=== PATIENT | female | born 1960 | race Caucasian/White ===

== ENCOUNTER → 2016-12-08 13:35 | Outpatient (CLI) | payer MEDICAID ==
[2015-11-20 06:25] VITALS: BMI 27.5
[~2016-12-08 13:35] MED LIST: AMBIEN5 MG PO; ATIVAN0.5 MG PO; GABAPENTIN100 MG PO; HYDROCODONE-APA1 TAB PO; TENORETIC 50 TA1 TAB PO; ZANAFLEX2 M1 PO
== END | disposition home or self-care (01) ==
LOC: D.MRI 13:35 → D.CT 15:30
DX: M54.2 Cervicalgia (principal); R06.00 Dyspnea, unspecified

== ENCOUNTER 2017-04-08 07:31 | Outpatient (CLI) | payer MEDICAID ==
[~2017-04-08] VITALS: Ht 157.5 cm; Wt 68.2 kg
--- NOTE | ~2017-04-08 | HEMODYNAMI ---
PATIENT:ARTEMIO CONCEPCION MEDICAL RECORD: [id number] : 58 LOCATION:DPETROS ADMISSION DATE: 04/08/17 Generatedon:04/08/201710:45 Patient name: ARTEMIO CONCEPCION Patient #: [id number] SSN: : 1960 Date of study: 04/08/2017 Page: Of Hemodynamic Procedure Report Patient Data Patient Demographics Procedure consent was obtained First Name: ARTEMIO Gender: Female Last Name: JAMEY : 1960 [facility] Initial: BETH Age: 57 year(s) Patient #: [id number] Race: Additional ID: [id number] Contact details Address: [address] [place] [address] State: [place] City: [facility] Zip code: [address] Past Medical History Performed procedures and imaging results Date Procedure Procedure Results Comments 02/16/2017 Stress testing Negative with SPECT MPI Allergies: No known allergies Admission Admission Data Admission Date: 04/08/2017 Admission Time: 7:31 Admit Source: Other Height (in.): 62 BSA: 1.69 (m2) Height (cm.): 157.48 BMI: 27.49 (kg/m2) Weight (lbs.): 150.31 Weight (kg.): 68.18 Lab Results Lab Result Date: 04/08/2017 Lab Result Time: 7:00 Biochemistry Name Units Result Min Max BUN mg/dl 27 --(----)-* 7 18 Creatinine mg/dl 0.9 --(-*--)-- 0.6 1.3 Potassium mmol/l 3.1 *-(----)-- 3.5 5.1 CBC Name Units Result Min Max Hematocrit % 41.2 -*(----)-- 42 54 Hemoglobin g/dl 13.7 --(*---)-- 13.5 17.5 Procedure Procedure Types Cath Procedure Diagnostic Procedure [facility] w/Coronaries PCI Procedure Coronary Stent Initial Procedure Description Procedure Date Procedure Date: 04/08/2017 Procedure Start Time: 10:27 Procedure End Time: 10:43 Procedure Staff Name Function Umer Goff MD Performing Physician Francisco Javier Naranjo RT Scrub Zion Cornell RN Nurse David Albarran RT Monitor Procedure Data Cath Procedure Fluoroscopy Diagnostic fluoroscopy Total fluoroscopy Time: 0 time: 0 min min Diagnostic fluoroscopy Total fluoroscopy dose: dose: 155.79 mGy 155.79 mGy Contrast Material Contrast Material Type Amount (ml) Isovue 300 97 Entry Location Entry Primary Successful Side Size Upsize Upsize Entry Closure Sneed ccessful Closure Location (Fr) 1 (Fr) 2 (Fr) Remarks Device Remarks Radial Right 6 Fr Mechanical artery Short Compression Estimated blood loss: 10 ml Diagnostic catheters Device Type Used For End Catheter Placement [employer] Dexterity 5Fr Procedure TRAP 4.0 catheter (NO COST SUPPLY) Procedure Medications Medication Administration Route Dosage Oxygen NC 2 l/min Heparin Flush Bag added to field 2 bags (1000units/500ml NS) 0.9% NaCl I.V. ml/hr Radial Cocktail added to field 1 syringe (Verapomil 2mg/Nitro 400mcg/Heparin 1500units) Fentanyl I.V. 50 mcg Versed I.V. 1 mg Radial Cocktail added to field 1 syringe (Verapomil 2mg/Nitro 400mcg/Heparin 1500units) Fentanyl I.V. 50 mcg Versed I.V. 1 mg Fentanyl I.V. 50 mcg Heparin Bolus I.V. 4000 units Integrilin (Bolus I.V. 6.2 ml 2mg/ml) Integrilin (Bolus wasted 3.8 ml 2mg/ml) Fentanyl I.V. 50 mcg Plavix P.O. 600 mg Hemodynamics Rest BSA: 1.69 (m2) HGB: 13.7 (g/dl) O2 Consumption: Estimated: 157.71 (ml/min) O2 Co nsumption indexed: Estimated:93.32 (ml/min/m) Heart Rate: 65 (bpm) Pressure Samples Time Site Value (mmHg) Purpose Heart Use Rate(bpm) 10:29 LV 203/-53,-8 Snapshot 73 Snapshots Pre Cath Intra NCS Post Cath Vital Signs Time Heart Resp SPO2 NIBP (mmHg) Rhythm Pain Sedation Rate (ipm) (%) Status Level (bpm) 10:02:51 63 17 98 127/85(108) NSR 0 (11) 10(A) , No pain 10:07:07 67 17 98 126/77(97) NSR 0 (11) 10(A) , No pain 10:11:27 61 17 95 118/70(86) NSR 0 (11) 10(A) , No pain 10:15:39 65 16 97 115/76(91) NSR 0 (11) 10(A) , No pain 10:19:53 61 17 97 112/74(90) NSR 0 (11) 10(A) , No pain 10:24:07 64 19 97 104/69(80) NSR 0 (11) 10(A) , No pain 10:28:21 71 17 96 99/58(76) NSR 0 (11) 9(A) , No pain 10:32:25 77 17 98 110/84(93) NSR 0 (11) 9(A) , No pain 10:36:34 81 18 96 131/81(106) NSR 0 (11) 9(A) , No pain 10:40:48 77 18 97 123/72(95) NSR 0 (11) 10(A) , No pain Medications Time Medication Route Dose Verified Delivered Reason Note s Effectiveness by by 10:09:14 Oxygen NC 2 l/min Zion Donovan Per physician Kraig Cornell RN RN 10:09:23 Heparin Flush added 2 bags Zion Donovan used for Bag to Kraig Cornell mule tender (1000units/500ml field RN NS) 10:09:29 0.9% NaCl I.V. ml/hr Zion Donovan Per physician Kraig Cornell RN RN 10:09:38 Radial Cocktail added 1 Zion Donovan used for (Verapomil to syringe Kraig Cornell RN procedure 2mg/Nitro field RN 400mcg/Heparin 1500units) 10:24:54 Fentanyl I.V. 50 mcg Zion Donovan for sedation Kraig Cornell RN RN 10:25:00 Versed I.V. 1 mg Zion Donovan for sedation Kraig Cornell RN RN 10:28:23 Radial Cocktail added 1 Zion Owusu for (Verapomil to syringe Kraig urbano 2mg/Nitro field RN 400mcg/Heparin 1500units) 10:29:33 Fentanyl I.V. 50 mcg Zion Donovan for sedation Kraig Cornell RN RN 10:29:40 Versed I.V. 1 mg Zion Zion for sedation Kraig Cornell RN RN 10:32:06 Fentanyl I.V. 50 mcg Zion Zion for sedation Kraig Cornell RN RN 10:33:16 Fentanyl I.V. 50 mcg Zion Zion for sedation Kraig Cornell RN RN 10:35:14 Heparin Bolus I.V. 4000 Zion Zion for units Kraig Cornell RN anticoagulation RN 10:35:29 Integrilin I.V. 6.2 ml Zion Zion for (Bolus 2mg/ml) Kraig Cornell RN antiplatelet RN therapy 10:35:44 Integrilin wasted 3.8 ml Zion Zion for (Bolus 2mg/ml) Kraig Cornell RN antiplatelet RN therapy 10:40:03 Plavix P.O. 600 mg Zion Zion for Kraig Cornell RN antiplatelet RN therapy Procedure Log Time Note 8:46:32 Informed consent obtained and on chart 8:46:43 Diagnostic Cath Status : Elective 8:49:15 Admit Source: Other 8:56:13 Lab Result : Potassium 3.1 mmol/l 8:56:13 Lab Result : Hemoglobin 13.7 g/dl 8:56:13 Lab Result : Hematocrit 41.2 % 8:56:13 Lab Result : BUN 27 mg/dl 8:56:13 Lab Result : Creatinine 0.9 mg/dl 8:56:23 Patient Weight : 68.18 kg 8:56:29 Patient Height : 157.48 cm 9:29:40 David Albarran RT(R) (CV) sent for patient. Start room use. 9:50:57 Patient received from Pre/Post Procedure Room to CCL 3 Alert and oriented. Tansferred to table in Supine position. 9:51:13 Time tracking: Regular hours 9:51:18 Plan of Care:Hemodynamics will remain stable., Cardiac rhythm will remain stable., Comfort level will be maintained., Respiratory function will remain adequate., Patient/ family verbilizes understanding of procedure., Procedure tolerated without complication., Recovers from procedure without complications.. 10:01:44 Vital chart was started 10:03:10 Baseline sample Acquired. 10:03:14 Rhythm: sinus rhythm 10:03:19 Full Disclosure recording started 10:04:48 H&P Date Dictated: 03/19/2017 Within 30 days and on chart., H&P Addendum completed by physician on day of procedure. (MUST COMPLETE FOR ALL OUTPATIENTS). 10:04:50 Pre-procedure instructions explained to patient. 10:04:52 Pre-op teaching completed and patient verbalized understanding. 10:04:54 Family in waiting room. 10:04:58 Patient NPO since Midnight. 10:05:08 Patient allergic to No known allergies 10:05:11 Is the patient allergic to Iodine/contrast media? No. 10:05:21 Is patient on blood thinner?No 10:05:26 Patient diabetic? No. 10:05:32 ----Pre-sedation anethsthesia assessment.---- 10:05:38 Previous problem with sedation/anesthesia? No ? 10:05:40 Snore? No 10:05:43 Sleep apnea? No 10:05:45 Deviated septum? No 10:05:46 Opens mouth fully? Yes 10:05:47 Sticks out tongue? Yes 10:05:52 Airway obstruction? Yes COPD 10:05:55 Dentures? No ? 10:06:06 Pre procedure: right dorsailis pedis pulse 2+ Normal; easily identifiable; not easily obliterated 10:06:11 Modified Sandoval's test Ulnar < 7 seconds 10:06:15 Patient pain scale 0/10 ?. 10:06:24 IV patent on arrival in left wrist with 0.9% NaCl at KVO. 10:06:27 Lab results completed and on chart. 10:07:43 Right Radial & Right Groin area was prepped with chlora-prep and draped in sterile fashion 10:07:44 Alarms reviewed by R. N. 10:07:45 Sharps counted by scrub and verified by R.N. 10:09:14 Oxygen 2 l/min NC was administered by Zion Cornell RN; Per physician; 10:09:23 Heparin Flush Bag (1000units/500ml NS) 2 bags added to field was administered by Zion Cornell RN; used for procedure; 10:09:29 0.9% NaCl ml/hr I.V. was administered by Zion Cornell RN; Per physician; 10:09:38 Radial Cocktail (Verapomil 2mg/Nitro 400mcg/Heparin 1500units) 1 syringe added to field was administered by Zion Cornell RN; used for procedure; 10:15:31 Zero performed for pressure channel P1 10:15:53 Zero performed for pressure channel P1 10:16:48 Zero performed for pressure channel P1 10:17:17 Physician paged 10::24 Physician arrived 10::24 --------ALL STOP TIME OUT------ 10:24:25 Final Timeout: patient, procedure, and site verified with staff and physician. All members of the team are in agreement. 10:24:29 Right Radial & Right Groin site verified by team. 10:24:32 Physical assessment completed. ASA score P 2 - A patient with mild systemic disease as per Umer Goff MD. 10::38 Sedation plan: IV Moderate Sedation Versed, Fentanyl 10:24:54 Fentanyl 50 mcg I.V. was administered by Zion Cornell RN; for sedation; 10:25:00 Versed 1 mg I.V. was administered by Zion Cornell RN; for sedation; 10:26:21 Use device set Radial Dx 10:26:23 Acist Syringe opened to sterile field. 10:26:23 Medline Cath Pack opened to sterile field. 10:26:24 Bag Decanter opened to sterile field. 10:26:24 Terumo 6Fr Slender Glidesheath opened to sterile field. 10:26:26 St Emil 260cm J .035 wire opened to sterile field. 10:26:26 Acist Hand Control opened to sterile field. 10:26:27 Acist Manifold opened to sterile field. 10:26:27 Tegaderm 4 x 4 opened to sterile field. 10:27:26 Procedure started. 10::38 Local anesthetic to right radial artery with Lidocaine 2% by Umer Goff MD.INITIAL ACCESS ONLY 10:27:50 A 6 Fr Short sheath was inserted into the Right Radial artery 10:28:23 Radial Cocktail (Verapomil 2mg/Nitro 400mcg/Heparin 1500units) 1 syringe added to field was administered by Umer Goff MD; for vasodilation; 10:28:47 A Wordeoerity 5Fr TRAP 4.0 catheter (NO COST SUPPLY) was advanced over the wire and used for Procedure. 10:29:22 LV hemodynamics recorded. 10:29:27 LV gram done using DUFFY 10::33 Fentanyl 50 mcg I.V. was administered by Zion Cornell RN; for sedation; 10::35 LV Function : Normal 10::40 Versed 1 mg I.V. was administered by Zion Cornell RN; for sedation; 10:29:41 EF : 60 % 10:30:00 LCA angiography performed. 10:30:53 RCA angiography performed. 10:32:06 Fentanyl 50 mcg I.V. was administered by Zion Cornell RN; for sedation; 10:32:16 Catheter removed. 10:32:17 Proceeding to intervention. 10:32:50 ByteShield BasixCompak Inflation Kit opened to sterile field. 10:32:50 Jc Whisper J 300cm 0.014 guide wire opened to sterile field. 10:32:51 Medtronic Launcher 6Fr AR 1.0 SH guide catheter opened to sterile field. 10:33:13 Procedure type changed to Cath procedure, Diagnostic procedure, LHC, LHC w/Coronaries, PCI procedure, Coronary Stent Initial 10:33:16 Fentanyl 50 mcg I.V. was administered by Zion Cornell RN; for sedation; 10:33:21 PCI Cath status Elective 10:34:14 6 Fr AR 1 guide catheter was inserted over the wire 10:34:55 WHISPER wire advanced. 10:35:01 Wire advanced across lesion. 10:35:14 Heparin Bolus 4000 units I.V. was administered by Zion Cornell RN; for anticoagulation; 10:35:29 Integrilin (Bolus 2mg/ml) 6.2 ml I.V. was administered by Zion Cornell RN; for antiplatelet therapy; 10:35:30 Inflation Number: 1 A Medtronic Integrity 3.0 X 18 stent was prepped and advanced across the Prox RCA. The stent was deployed at 13 LA for 0:10 (min:sec). 10:35:44 Integrilin (Bolus 2mg/ml) 3.8 ml wasted was administered by Zion Cornell RN; for antiplatelet therapy; 10:35:57 Stent catheter was removed intact over wire. 10:35:58 Wire removed. 10:35:59 Guide catheter removed. 10:37:54 Terumo TR Band Standard opened to sterile field. 10:38:08 Sheath removed intact; hemostasis achieved with Mechanical Compression to the Right Radial artery. 10:38:11 Procedure ended.(Physican Out) 10:39:43 TR band inflated with 12cc of air. 10:39:57 Fluoroscopy time 00.00 minutes. 10:40:03 Plavix 600 mg P.O. was administered by Zoin Cornell RN; for antiplatelet therapy; 10:40:06 Fluoroscopy dose: 155.79 mGy 10:40:06 Flurop Dose total: 155.79 10:40:21 Contrast amount:Isovue 300 97ml. 10:40:23 Sharps counted by scrub and verified by R.N. 10:40:55 Insertion/operative site no bleeding no hematoma. 10:41:10 Post right radial artery:stable 10:41:12 Post Procedure Pulses reassessed and unchanged 10:41:18 Post-procedure physical assessment completed. ASA score P 2 - A patient with mild systemic disease as per Umer Goff MD. 10:41:25 Post procedure rhythm: sinus rhythm 10:41:31 Estimated blood loss: 10 ml 10:41:32 Post procedure instruction explained to patient.Patient verbalizes understanding. 10:41:33 Patient needs reinforcement of post procedure teaching. 10:41:34 Procedure and supply charges have been captured, reviewed, submitted and are correct. 10:42:54 Vital chart was stopped 10:42:55 See physician's report for complete and final results. 10:42:58 Report given to Pre/Post Procedure Room. 10:43:02 Patient transfered to Pre/Post Procedure Room with Stretcher. 10:43:05 Procedure ended. 10:43:05 Full Disclosure recording stopped 10:43:17 ACC-PCI Only Patient was given prescriptions, or instructed by Umer Goff MD to start/continue the following medications upon discharge: Aspirin, Plavix 10:43:19 End room use (Document Last) Intervention Summary Intervention Notes Time ActionType Lesion and Equipment Action# Pressure Duration Attributes Used 10:35:30 Place stent Prox RCA Medtronic 1 13 00:10 Integrity 3.0 X 18 stent Device Usage Item Name Manufacture Quantity Catalog Hospital Part Current Minimal Lot# / Number Charge Number Stock Stock Serial# Code Acist Acist 1 31305 [id number] 507391 385449 20 [employer] Medline Cardinal 1 [id number] 564482 24408 958175 5 Cath Pack Health Bag Microtek 1 2001S 226143 48378 642117 5 MetaIntell Inc. Terumo 6Fr Terumo 1 [id number] 497391 849610 980054 [address] [facility] Emil 1 [id number] 554074 672831 004756 30 260cm J .035 wire Acist Hand Acist 1 03735 767561 854206 687713 5 Control Medical Systems Inc Acist Acist 1 09970 091418 693110 517841 5 Manifold Medical Systems Inc Tegaderm 4 3M 1 [id number] 143487 467420 457017 5 x 4 Medtronic Medtronic 1 [id number] 984038 862537 5 Dexterity 5Fr TRAP 4.0 catheter (NO COST SUPPLY) Merit Merit 1 [id number] 002377 119201 258288 15 BasixCompak Medical Inflation Kit Jc Jc 1 [id number] 133309 856304 480439 5 Whisper J Vascular 300cm 0.014 guide wire Medtronic Medtronic 1 [id number] 196857 10554 524142 1 Launcher 6Fr AR 1.0 SH guide catheter Medtronic Medtronic 1 [id number] 263235 622087 8 [id number] Integrity 3.0 X 18 stent Terumo TR Terumo 1 [id number] 035859 854037 466310 40 Band Standard Signature Audit [place] Stage Time Signature Unsigned Intra-Procedure 04/08/2017 David Albarran 10:44:50 AM RT(R) (CV) Signatures Monitor : David Albarran RT Signature : Date : Time : [facility] [address], [place] [address]
--- NOTE | ~2017-04-08 | OP ---
PATIENT NAME: ARTEMIO CONCEPCION MEDICAL RECORD: [id number] :58 LOCATION:D.CAT ADMISSION DATE: SURGEON: MARY MEDELLIN MD DATE OF OPERATION: 04/08/2017 PROCEDURES: 1. PTCA stent RCA. 2. Left heart catheterization. 3. Selective coronary angiography. 4. Left ventriculogram. INDICATION: Angina and coronary artery disease. PROCEDURE IN DETAIL: After informed consent was obtained and after detailed explanation of risks, benefits as well as alternative therapies, the patient elected to proceed with angiogram and angioplasty. The right radial area was prepped and draped in normal sterile fashion. Right radial artery was cannulated via modified Seldinger technique with placement of 6-Bulgarian sheath. All catheters exchanged through this sheath. FINDINGS: Left ventriculogram was performed in standard 30-degree DUFFY view, reveals good cardiac wall motion throughout all segments. Overall ejection fraction estimated at 60%. SELECTIVE CORONARY ANGIOGRAPHY: 1. Left main showed no significant angiographic disease. 2. Left anterior descending has moderate irregularities, but no flow-limiting stenosis. 3. The left circumflex has moderate irregularities, but no flow-limiting stenosis. 4. Right coronary has at least 70% stenosis proximally. PTCA STENT OF THE RCA: The stent used was a 3.0 x 18 mm Integrity. Result was 0% residual stenosis. OVERALL IMPRESSION: Successful percutaneous transluminal coronary angioplasty stent of the right coronary artery going from 70+ percent initial stenosis to 0% residual. TRANSINT:[id number] Voice Confirmation ID: [id number] DOCUMENT ID: [id number] MARY MEDELLIN MD CC: [id number] DICTATION DATE: 04/08/17 1041 GENERAL LABOR FORKLIFT OPERATOR: 04/08/17 1231 DEP CLI 04/08/17 [place] [id number] [place] [id number]
[2017-04-08] MEDS ORDERED: ROBAXIN-750750 MG PO (07:51)
[2017-04-08] MEDS ORDERED: DUEXIS 800-26.1 EACH PO (07:51)
[2017-04-08 07:58] VITALS: BP 148/78; Ht 157.5 cm; Wt 68.2 kg
[2017-04-08 08:02] LABS: BASOPHILS 0.4 % (0-2); HEMATOCRIT 41.2 % (36.0-48.0); HEMOGLOBIN 13.7 g/dL (12-16); IMMATURE GRANULOCYTES 0.3 % (0-5); LYMPHOCYTES 27.2 % (15-50); MCHC 33.3 g/dL (31.0-37.0); MCV 93.2 fL (80.0-100.0); MONOCYTES 11.8 % (2-11); NEUTROPHILS 58.3 % (40-80); PLATELET COUNT 251 10x3/uL (130-400); RBC 4.42 10x6/uL (4.00-5.40); RDW 12.4 % (11.5-14.5); WBC 7.6 10x3/uL (4.8-10.8)
[2017-04-08 08:11] LABS: ANION GAP 9.1 mmol/L (8-16); CALCIUM 9.7 mg/dL (8.5-10.1); CREATININE - SERUM 0.9 mg/dL (0.6-1.3); POTASSIUM - SERUM 3.1 mmol/L (3.5-5.1)
[2017-04-08] MEDS ORDERED: PLAVIX75 MG PO (11:10)
[2017-04-08] MEDS ORDERED: BAYER CHEWABLE81 MG PO (11:10)
--- NOTE | 2017-04-08 11:40 | NUR ---
1110 HOB ELEVATED. AWAKE, TALKING WITH AT BEDSIDE. ROOM AIR WITH NO RESP DISTRESS. NSR RATE 73 W NO C/O CHEST PAIN. PULSES PALP X 4. AT BEDSIDE.
--- NOTE | 2017-04-08 12:45 | NUR ---
1140 EATING TURKEY SANDWICH WITH AT BEDSIDE. NSR RATE 66 W NO C/O CHEST PAIN. PULSES PALP X 4. ROOM AIR. DENIES ANY CHEST PAIN AT THIS TIME.
--- NOTE | 2017-04-08 14:29 | NUR ---
1230 SLEEPING, ROOM AIR W NO DISTRESS. R WRIST TR BAND C/D/I WITH NO HEMATOMA OR BLEEDING. FAMILY AT BEDSIDE. ALL VITALS WNL. 1330 UP FROM BED, AMBULATED TO BATHROOM TO VOID. ALL VITALS REMAIN WNL AFTER AMBULATING. R WRIS TR BAND C/D/I. 1400 3CC AIR REMOVED FROM R WRIST TR BAND. WILL MONITOR CLOSELY FOR BLEEDING. 1415 3CC AIR REMOVED FROM R WRIST TR BAND. NO BLEEDING NOTED. WILL MONITOR CLOSELY. 1430 PIV REMOVED WITH BANDAID APPLIED. REMAINING PRESSURE FROM R WRIST TR BAND REMOVED. TEGADERM AND 2X2 APPLIED. D/C INSTRUCTIONS DISCUSSED WITH PATIENT AND AT BEDSIDE. WHEELED OUT VIA WHEELCHAIR BY CATH TEAM.
== END 2017-04-08 14:33 | disposition home or self-care (01) ==
LOC: D.CATH 07:31
PROVIDERS: Internal Medicine Interventional Cardiology
DX: I20.9 Angina pectoris, unspecified (principal); I10 Essential (primary) hypertension; R07.9 Chest pain, unspecified; R06.09 Other forms of dyspnea; Z87.891 Personal history of nicotine dependence; Z01.812 Encounter for preprocedural laboratory examination